=== PATIENT | male | born 1945 | race Caucasian/White ===

== ENCOUNTER → 2017-01-31 | Day surgery (SDC) | payer MEDICARE, OTHER ==
[2017-01-30 10:26] VITALS: BMI 27.1
[~2017-01-31] MED LIST: LACTATED RINGERS 1,000 ML IV SCH; LIDOCAINE 1% 20 ML VIAL (10MG/ML) FOR IV START INTRADERMA ONE; LIDOCAINE 1% INJ 10MG/ML (20 ML MDV) ONE; PROPOFOL 10 MG/ML 20 ML VIAL IV ONE
[2017-01-31 10:02] VITALS: RESP 16; TEMP 97.7
--- NOTE | 2017-01-31 11:01 | P.PCN ---
Date of Procedure: 01/31/17 Procedure(s) Performed: BRIEF HISTORY: Patient is a 72-year-old pleasant male, scheduled for an elective colonoscopy as a part of evaluation of prior history of colon polyps. Last colonoscopy was done in 2010. PROCEDURE PERFORMED: Colonoscopy. PREOPERATIVE DIAGNOSIS: Colon polyp. IV sedation per Anesthesia. PROCEDURE: After informed consent was obtained, the patient, was brought into the endoscopy unit. IV sedation was administered by Anesthesia under continuous monitoring. Digital rectal examination was normal. Initially the Olympus CF- 160 flexible video colonoscope was then inserted in the rectum, gradually advanced into the cecum without any difficulty. Careful examination was performed as the scope was gradually being withdrawn. Ileocecal valve and the appendiceal orifice were visualized and appeared normal. Prep was excellent. Mucosa of the cecum, ascending colon, transverse colon, descending colon, sigmoid colon, and rectum appeared normal. Sigmoid diverticulosis seen. Retroflexion was performed in the rectum and no lesions were seen. The patient tolerated the procedure well. IMPRESSION: Normal-appearing colon from rectum to cecum with no evidence of colorectal neoplasia. Scattered sigmoid diverticulosis. Impression : Findings of this examination were discussed with the patient as well as his family. He was advised to have a repeat surveillance colonoscopy in 5 years from now because of the prior history of colon polyps..
[2017-01-31 11:51] VITALS: BP 148/77; PULSE 77
== END ==
LOC: ORWHC2ENDO 09:30
PROVIDERS: ATTEND Internal Medicine Gastroenterology
DX: Z12.11 Encounter for screening for malignant neoplasm of colon (principal); K57.30 Diverticulosis of large intestine without perforation or abscess without bleeding; Z86.010 Personal history of colon polyps; E78.5 Hyperlipidemia, unspecified; Z79.82 Long term (current) use of aspirin; Z79.899 Other long term (current) drug therapy; Z91.041 Radiographic dye allergy status; Z91.013 Allergy to seafood
CPT/HCPCS: J2001; J2704; G0105

== ENCOUNTER 2024-02-07 08:22 | Day surgery (SDC) | payer MEDICARE, OTHER ==
[2024-02-07 08:37] VITALS: TEMP 97.6
[2024-02-07] MEDS: LACTATED RINGERS 1,000 ML IV SCH (08:43)
[2024-02-07] MEDS: IV FLUID CONTINUATION 1,000 ML IV ONE (08:43)
[2024-02-07] MEDS ORDERED: LIDOCAINE 1% INJ 10MG/ML (20 ML MDV) ONE (08:54)
[2024-02-07] MEDS ORDERED: PROPOFOL 10 MG/ML 20 ML VIAL IV ONE (08:54)
--- NOTE | 2024-02-07 09:16 | P.PCN ---
Date of Procedure: 02/07/24 Procedure(s) Performed: BRIEF HISTORY: Patient is a 79-year-old pleasant white male scheduled for an elective colonoscopy as a part of evaluation of prior history of of colon polyps. PROCEDURE PERFORMED: Colonoscopy with snare polypectomy. PREOPERATIVE DIAGNOSIS: History of colon polyps. IV sedation per Anesthesia. PROCEDURE: After informed consent was obtained, the patient, was brought into the endoscopy unit. IV sedation was administered by Anesthesia under continuous monitoring. Digital rectal examination was normal. Initially the Olympus CF-160 flexible video colonoscope was then inserted in the rectum, gradually advanced into the cecum without any difficulty. Careful examination was performed as the scope was gradually being withdrawn. Ileocecal valve and the appendiceal orifice were visualized and appeared normal. Prep was excellent. Mucosa of the cecum, ascending colon, transverse colon appeared normal. The descending colon there was a 6 mm sessile polyp removed by cold snare polypectomy. Rest of the, descending colon, sigmoid colon, and rectum appeared normal. Scattered left- sided diverticulosis. Retroflexion was performed in the rectum and no lesions were seen. The patient tolerated the procedure well. IMPRESSION: 6 mm descending colon polyp status post cold snare polypectomy Scattered left-sided diverticulosis RECOMMENDATIONS: Findings of this examination were discussed with the patient as well as his family. He was advised to follow with the biopsy results. Continue with a high-fiber diet..
[2024-02-07 09:24] VITALS: RESP 16
[2024-02-07 09:38] VITALS: BP 135/64; PULSE 56
== END 2024-02-07 10:10 | disposition home or self-care (01) ==
LOC: ORWHC2ENDO 08:22
PROVIDERS: ATTEND Internal Medicine Gastroenterology
CPT/HCPCS: 45385; 88305

== ENCOUNTER → 2024-07-09 | Outpatient (CLI) | payer MEDICARE, OTHER ==
--- NOTE | 2024-07-09 13:38 | NM ---
EXAMINATION TYPE: NM DatScan Brain SPECT DATE OF EXAM: 07/09/2024 COMPARISON: NONE CLINICAL INDICATION: Male, 79 years old with history of R25.1 TREMOR, UNSPECIFIED; TECHNIQUE: 10 drops of Lugol's solution was administered 1 hour prior to injection as a thyroid bloc chelsey agent. After the administration of 4.9 mCi I-123 Ioflupane DaTscan. Images obtained [address] injection. SPECT images of the brain were acquired with axial and coronal reconstructions. FINDINGS: The DaTSCAN demonstrates reduced uptake of tracer throughout the bilateral striata. 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 [facility], , 07/09/2024 1:36 PM
== END | disposition home or self-care (01) ==
LOC: RADNMMAIN 07:53
PROVIDERS: ATTEND Family Medicine
DX: R25.1 Tremor, unspecified (principal)
CPT/HCPCS: 78803; A9584

== ENCOUNTER 2024-09-07 08:08 | Day surgery (SDC) | payer MEDICARE, OTHER ==
[2024-09-07] MEDS: IV FLUID CONTINUATION 1,000 ML IV ONE ×2 (08:24→10:08)
[2024-09-07 09:00] VITALS: RESP 16; TEMP 97.9
[2024-09-07] MEDS: SODIUM CHLORIDE 0.9% 1,000 ML IV SCH (09:00)
[2024-09-07 10:40] VITALS: BP 151/65; PULSE 55
--- NOTE | 2024-09-07 15:37 | P.EPPROC ---
- EP Procedure Note Electrophysiology Procedure Note: Diagnosis Recurrent presyncope 12 EKG shows sinus mechanism normal [place] narrow QRS normal ST segments Tilt table test per protocol Baseline blood pressure 206/89 mmHg Baseline heart rate 67 beats a minute Patient was tilted upright on maculas 70 degrees per protocol Immediate blood pressure was 153/56 mmHg. No symptoms noted Thereafter his blood pressure remained in the normal range Heart rates remained in the normal range There was no evidence for neurocardiogenic syncope or dysautonomia Towards the end the patient felt lightheaded clammy and sweaty but without any significant change in heart rate or blood pressure Impression normal twelve-lead EKG No evidence for neurocardiogenic syncope or dysautonomia
== END 2024-09-07 10:39 | disposition home or self-care (01) ==
LOC: CATHEP 08:08
PROVIDERS: ATTEND Internal Medicine Clinical Cardiac Electrophysiology
DX: R55 Syncope and collapse (principal)
CPT/HCPCS: 93660

== ENCOUNTER → 2024-11-13 | Outpatient (CLI) | payer MEDICARE, OTHER ==
--- NOTE | 2024-11-14 08:02 | MR ---
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 COMPARISON: Nuclear medicine DatScan brain 07/09/2024. TECHNIQUE: Multi planar, multi sequence imaging was performed through the brain without the administr ation of intravenous contrast. FINDINGS: The reynolds-white junctions appear unremarkable. Mild to moderate cerebral atrophy with prominence of th e ventricular system, cisterns, and peripheral sulci. Diffusion-weighted imaging shows no evidence of restricted diffusion to suggest acute/subacute infarct. Intracranial arterial flow voids are maintai casie. Midline structures show no abnormality. Scattered foci of high T2/FLAIR signal intensity are see n within the subcortical and periventricular white matter. The susceptibility weighted images do not reveal any evidence for micro-hemorrhage. There is suggested absent swallow tail sign of the substant ia nigra on susceptibility weighted imaging with a right greater than left. The bone marrow signal is within normal limits. The paranasal sinuses and globes are unremarkable. IMPRESSION: 1. No evidence of intracranial mass or acute/subacute infarct. 2. Absent swallow tail sign of the substantia nigra which can be seen with Parkinson's disease or dem entia with Lewy bodies. 3. Nonspecific mild white matter changes, likely related to small vessel ischemic disease. [facility], , 11/14/2024 7:59 AM
== END | disposition home or self-care (01) ==
LOC: RADMRIMAIN 18:04
PROVIDERS: ATTEND Psychiatry & Neurology Neurology
DX: R41.3 Other amnesia (principal); G20.A1 Parkinson's disease without dyskinesia, without mention of fluctuations; R90.82 White matter disease, unspecified
CPT/HCPCS: 70551